=== PATIENT | male | born 1975 | race Caucasian/White ===

== ENCOUNTER 2016-11-10 15:30 | Emergency (ER) | payer OTHER ==
[~2016-11-10] VITALS: Ht 172.7 cm; Wt 87.1 kg
[~2016-11-10 15:30] MED LIST: LISINOPRIL HCTZ1 TAB PO; LISINOPRIL-HCT1 EAC1 PO; PERCOCET 5-3251 EACH PO; SIMVASTATIN20 M2 PO; VITAMIN D2000 UNI1 PO
[2016-11-10 15:46] VITALS: BP 134/90
--- NOTE | 2016-11-10 16:26 | ED CARDIAC/CP/PALPITATIONS ---
History of Present Illness General Chief Complaint: Chest Pain Stated Complaint: PT IS HAVING CHEST PAIN Source: patient, old records Exam Limitations: no limitations Vital Signs & Intake/Output Vital Signs & Intake/Output Vital Signs Date Time Temp Pulse Resp B/P B/P Pulse O2 O2 Flow FiO2 Mean Ox Delivery Rate 11/10 1546 98.8 83 16 134/90 99 Room Air Allergies Coded Allergies: NO KNOWN ALLERGIES (03/10/11) Reconcile Medications Cholecalciferol (Vitamin D3) (Vitamin D) (Unknown Strength) TABLET (Unknown Dose) PO DAILY SUPPLEMENT (Reported) Famotidine (Pepcid) 40 MG TABLET 1 TAB PO DAILY gerd Lisinopril/Hydrochlorothiazide (Lisinopril-Hctz 20-25 MG Tab) 1 EACH TABLET 1 TAB PO DAILY BP (Reported) Oxycodone HCl/Acetaminophen (Percocet 5-325 MG Tablet) 1 EACH TABLET 1-2 TAB PO Q6P PRN PAIN Simvastatin (Simvastatin*) 20 MG TABLET 1 TAB PO QPM CHOLESTEROL (Reported) Triage Note: TRIAGE: TRANSVERSE UPPER CHEST PAIN, DULL IN NATURE STARTED APPROXIMATELY ONE WEEK AGO. NORMAL SINUS RATE 84 ON EKG. STATES PAIN IS MIDSTERNAL AND BURNING AT NIGHT. DENIES TAKING PPI OR ANTACIDS. DENIES MITIGATING FACTORS. STARTED TAKING CHANTIX 2 WEEKS AGO, SMOKES 1PPD. PAIN IS INTERMITTENT. DENIES N/V/D. Triage Nurses Notes Reviewed? yes Onset: Gradual Duration: week(s): (1), intermittent Timing: recent history Quality/Severity: mild, moderate, dull Location: epigastric Radiation: no radiation Activities at Onset: none Prior Chest Pain/Card Workup: no prior chest pain Nitro Today/Relief: no nitro taken today Aspirin Today: no aspirin today Associated Symptoms: denies HPI: 41-year-old male with history of hypertension and high cholesterol presents to ER for evaluation complaining of epigastric substernal chest pain dull in nature intermittent for the past 1 week 3 out of 10. There is no radiation the pain no abdominal back jaw or arm pain numbness or tingling. No palpitations dizziness or lightheadedness. He has not sought care for the symptoms were taken anything for the same. Pain comes on randomly area he states that he believes it is attributed as he is been putting a lot of lemon juice in his Tea, eats a lot a hot sauce and is under a lot of stress secondary to caring for his ailing father. Patient denies tobacco or alcohol use he is currently on Chantix which she just started no other recent changes in his medication which she's been compliant with. (RENUKA PHELAN) Past History Travel History Traveled to [place] past 21 day No Medical History Any Pertinent Medical History? see below for history Neurological: NONE EENT: NONE Cardiovascular: hypertension, hyperlipidemia Respiratory: NONE Gastrointestinal: NONE Hepatic: NONE Renal: NONE Musculoskeletal: NONE Psychiatric: NONE Endocrine: NONE Blood Disorders: NONE Cancer(s): NONE Tetanus Vaccine: Surgical History Surgical History: non-contributory Psychosocial History What is your primary language Kenyan Tobacco Use: Current Daily Use Daily Tobacco Use Amount/Type: => 5 Cigarettes daily ETOH Use: occasional use Illicit Drug Use: denies illicit drug use Family History Hx Contributory? No (RENUKA PHELAN) Review of Systems Review of Systems Constitutional: Reports: no symptoms, see HPI. All Other Systems: Reviewed and Negative Comments Review of systems: See HPI, All other systems negative. Constitutional, no chills no fever, no malaise HEENT: No visual changes no sore throat no congestion, Cardiovascular: No chest pain , no palpitation , no orthopnea Skin: no rashes, no change in skin Respiratory: No dyspnea no cough no sputum no hemoptysis GI: No nausea no vomiting, no diarrhea, no bloating/constipation : No dysuria Muscle skeletal: No joint pain, no joint swelling, no back pain, no neck pain, Neurologic: No numbness , no headache Psych: No stress Heme/endocrine: No bruising Immunology: No lymphadenopathy (RENUKA PHELAN) Physical Exam Physical Exam General Appearance: well developed/nourished, no apparent distress, alert, awake Cardiovascular: regular rate/rhythm Comments: Well-developed well-nourished person in no acute distress HEENT: Normal EENT exam; PERRL, EOMI, HEAD is atraumatic. moist mucous membranes. Neck: Supple, normal range of motion Back: Nontender, no CVA tenderness. Full range of motion Cardiovascular: Regular rate and rhythms no murmurs rubs Respiratory: Chest nontender.There were no bony deformities, no asymmetry. No respiratory distress. Patient speaking in full complete sentences. Breath sounds clear to auscultation bilaterally: NO W/R/R Abdomen: Soft, nontender nondistended, no appreciable organomegaly. Normal bowel sounds. No rebound/guarding, No appreciable enlargement of the abdominal aorta, No ascites. Extremity: No edema, full range of motion of extremities Neuro: Alert oriented x3, motor sensory normal, there were no obvious focal neurologic abnormalities. Skin: No appreciable rash on exposed skin, skin is warm and dry. Psych: Mood and affect is normal, memory and judgment is normal. Core Measures ACS in differential dx? Yes Severe Sepsis Present: No Septic Shock Present: No (RENUKA PHELAN) Progress Differential Diagnosis: AMI, aortic dissection, cholecystitis, myocarditis, pancreatitis, pericarditis, pneumothorax, PUD/GERD, unstable angina Plan of Care: Orders Procedure Date/time Status EKG 11/10 153 Active Laboratory Tests 11/10/16 1547: Troponin I Cancelled, CBC w Diff Cancelled, WBC Cancelled, RBC Cancelled, Hgb Cancelled, Hct Cancelled, MCV Cancelled, MCH Cancelled, RDW Cancelled, Plt Count Cancelled, MPV Cancelled, PUBS MCHC Cancelled Patient stating that he cannot wait any longer asking along as discussed take he is refusing blood work discussed with him plan of care A she is again declining stating he needs to get home to his father he cares for. Discussed with the patient that i strongly recommended labs cxr and tele monitoring however pt is refusing all, he understands the risk. rx fro pepcid and gi follow up provided. 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 pepcid as directed. bland diet, no fatty, spicy, greasy foods. these were sent to [facility] Departure Forms: Customer Survey General Discharge Information Prescriptions: Current Visit Scripts Famotidine (Pepcid) 1 TAB PO DAILY #14 TAB (RENUKA PHELAN) PA/BINDER SELECTOR Co-Sign Statement Statement: ED Attending supervision documentation- [] I saw and evaluated the patient. I have also reviewed all the pertinent lab results and diagnostic results. I agree with the findings and the plan of care as documented in the PA's/BINDER SELECTOR's documentation. [X] I have reviewed the ED Record and agree with the PA's/BINDER SELECTOR's documentation. [] Additions or exceptions (if any) to the PAs/BINDER SELECTOR's note and plan are summarized below: [] (LINA RAYMOND,DIMA) Critical Care Note Critical Care Note Critical Care Time: non-applicable (RENUKA PHELAN)
[2016-11-10] MEDS ORDERED: PEPCID40 M1 PO (16:35)
== END 2016-11-10 16:47 ==
LOC: ERH 15:30
DX: K21.9 Gastro-esophageal reflux disease without esophagitis (principal)
CPT/HCPCS: 93005; 93010